=== PATIENT | male | born 1945 | race Caucasian/White ===

== ENCOUNTER 2019-11-24 05:47 | Day surgery (SDC) | payer OTHER, BC ==
[2019-11-19 10:09] VITALS: BMI 26.1
[2019-11-24] MEDS ORDERED: ERYTHROMYCIN 0.5% OPHTHALMIC OINTMENT 3.5 GM TUBE ONE (07:12)
[2019-11-24] MEDS ORDERED: TETRACAINE 0.5% OPHTH SOLN 2 ML BOTTLE ONE (07:12)
[2019-11-24] MEDS ORDERED: LIDOCAINE 1%/EPI 1:100000 (20 ML MULTI DOSE VIAL) ONE (07:13)
[2019-11-24] MEDS ORDERED: POVIDONE-IODINE 5% OPHTHALMIC PREP 30 ML SOLUTION ONE (07:13)
[2019-11-24] MEDS ORDERED: MIDAZOLAM HCL 2 MG/2 ML SINGLE DOSE VIAL ONE (07:28)
[2019-11-24] MEDS ORDERED: PROPOFOL 20 ML ONE ×2 (07:28)
[2019-11-24] MEDS ORDERED: ceFAZolin SODIUM 1 GM VIAL ONE (08:00)
[2019-11-24] MEDS ORDERED: DEXAMETHASONE SOD PHOSPHATE 4 MG/1 ML VIAL ONE (08:20)
[2019-11-24] MEDS ORDERED: ONDANSETRON 4 MG/2 ML VIAL ONE ×2 (08:20→09:30)
[2019-11-24] MEDS ORDERED: oxyCODONE HCL 5 MG TABLET PO PRN (09:56)
[2019-11-24] MEDS ORDERED: ONDANSETRON 4 MG/2 ML VIAL IVPUSH PRN (09:56)
[2019-11-24] MEDS ORDERED: ACETAMINOPHEN 500 MG TABLET (FP) PO PRN (09:57)
[2019-11-24] MEDS ORDERED: LACTATED RINGERS SOLUTION 1,000 ML IV SCH (10:00)
[2019-11-24] MEDS ORDERED: ACETAMINOPHEN 325 MG TABLET (FP) ONE (10:22)
[2019-11-24 11:04] VITALS: TEMP 97.9
[2019-11-24 11:30] VITALS: BP 133/77; PULSE 58
--- NOTE | 2019-11-24 14:52 | OP ---
DATE OF OPERATION: 11/24/2019 PREOPERATIVE DIAGNOSIS: Dermatochalasis with visual obstruction, bilateral upper lids, and christianity brow ptosis contributing to it. POSTOPERATIVE DIAGNOSIS: Dermatochalasis with visual obstruction, bilateral upper lids, and christianity brow ptosis contributing to it. PROCEDURE: Functional blepharoplasty, bilateral upper lids. SURGEON: Salvador Miller MD ANESTHESIA: LMA. COMPLICATIONS: None. ESTIMATED BLOOD LOSS: 3-5 mL. OPERATIVE REPORT: Patient was brought to the operating room and placed on the operating room table. Vital signs were monitored by Anesthesia. Timeout was performed. Tetracaine was placed in both eyes. The lid creases were symmetrically marked, approximately 9 mm from the central lid margin and the patient's tetlin lid crease extending nasally and temporally. Again, checked with calipers for symmetry the amount of skin that could be safely removed, in order to restore his functional vision without lash eversion was determined by pinching the skin in both eyelids and the ellipses were marked, leaving at least 12 mm of skin below the inferior brow hairs. Intravenous sedation was administered, after the timeout, and a subcutaneous injection of 2% Xylocaine and 1:100,000 epinephrine was injected for 2-3 mL in both upper lids and along the lateral superior orbital rim, in preparation for a temporal brassiere suture. Patient was prepped and draped in the usual sterile fashion, exposing both eyes. The lid creases and ellipses were incised with a 15 blade and the skin was removed. Hemostasis was achieved with a Chambers needle. orbicularis was then widely opened with prolapse of preaponeurotic fat essentially in both upper lids. The nasal fat pads were identified, sculpted, and then nasal fat pedicles were developed in order to transpose the fat. The central fat pocket was gently sculpted and removed, but minimally so for debulking of the eyelid, where preoperative photographs demonstrated the greatest overhang of tissue, and the base of the fat was cauterized. The nasal fat pedicles were then transposed into the central eyelid and secured with a 6-0 Vicryl suture. Temporally, the arcus marginalis was exposed and the temporal orbicularis was sutured to the arcus marginalis with two interrupted 6-0 Vicryl sutures as brassiere sutures to elevate the temporal brow, fat pad, and accentuate the crease. The antibiotic irrigation was used. Good hemostasis was in evidence. The wounds were closed with interrupted and running 6-0 nylon suture Plastic technique. A small cystic lesion at the nasal end of the excision in the right upper lid was excised, and submitted for pathologic study, and this was closed with a single 6-0 plain suture as it was incorporated into the lid crease. Erythromycin ointment was placed in the eye and on the sutures of both upper lids. The patient was taken to recovery room, after being awakened from anesthesia without complication. SALVADOR MILLER M.D. [id number]
--- NOTE | 2019-11-25 18:29 | PATH ---
Surgical Pathology Report Patient Name: SALVADOR MCDONNELL Med. Rec. #: [id number] /Age/Gender: 1945 (Age: 74) / M Account: [id number] Location: [facility] Taken: 11/24/2019 Received: 11/24/2019 Reported: 11/25/2019 Physicians: Salvador Cardoza Specimen(s) Received A: SKIN RIGHT UPPER EYELID B: SKIN LEFT UPPER EYELID C: NASAL CYST, RIGHT UPPER EYELID Clinical History Dermatochalasis, bilateral upper eyes Final Diagnosis A. SKIN, UPPER EYELID, RIGHT, FUNCTIONAL BLEPHAROPLASTY: SKIN WITH SOLAR ELASTOSIS AND UNDERLYING SUBCUTANEOUS TISSUE. B. SKIN, UPPER EYELID, LEFT, FUNCTIONAL BLEPHAROPLASTY: SKIN WITH SOLAR ELASTOSIS, UNDERLYING SUBCUTANEOUS TISSUE, AND SCANT SKELETAL MUSCLE. C. NASAL CYST, UPPER EYELID, RIGHT, EXCISION: EPIDERMAL INCLUSION CYST. Electronically Signed Eloina Laboy M.D. Gross Description A. Received in formalin labeled "skin right upper eyelid" is an ellipse of [place] valle skin measuring 5.5 x 0.5 cm excised to a depth of 0.3 cm. No surface lesions are identified. Entire specimen is submitted in one cassette. B. Received in formalin labeled "skin left upper eyelid" is an ellipse of [place] skin measuring 4 x 0.5 cm excised to a depth of 0.2 cm. No surface lesions are identified. Entire specimen is submitted in one cassette. C. Received in formalin labeled "nasal cyst right upper eyelid" are irregular fragments of white-del valle soft tissue measuring 0.1 and 0.2 cm. The specimen is filtered and entirely submitted one cassette. MLSZ/11/24/2019 sanml/11/24/2019
== END 2019-11-24 11:30 | disposition home or self-care (01) ==
LOC: FASU 05:47
PROVIDERS: ATTEND Ophthalmology
PROC: 08QPXZZ Repair Left Upper Eyelid, External Approach (ICD-10-PCS; 2019-11-24)
PROC: 08QNXZZ Repair Right Upper Eyelid, External Approach (ICD-10-PCS; principal; 2019-11-24 08:23)
DX: H02.831 Dermatochalasis of right upper eyelid (principal); H02.834 Dermatochalasis of left upper eyelid; H57.813 Brow ptosis, bilateral
CPT/HCPCS: 88304-TC; 94760

== ENCOUNTER 2020-08-16 06:10 | Day surgery (SDC) | payer OTHER, BC ==
--- OUTSIDE RECORDS SUMMARY | 2020-08-10 08:33 | XMS ---
:1945 [facility] Support Name Relationship Address Phone RE Unavailable Unavailable Unavailable HIEN MCDONNELL [address] [phone] [place] [address] Re-disclosure Warning The records that you are about to access may contain information from federally- assisted alcohol or drug abuse programs. If such information is present, then the following federally mandated warning applies: This information has been disclosed to you from records protected by federal confidentiality rules (42 CFR part 2). The federal rules prohibit you from making any further disclosure of this information unless further disclosure is expressly permitted by the written consent of the person to whom it pertains or as otherwise permitted by 42 CFR part 2. A general authorization for the release of medical or other information is NOT sufficient for this purpose. The Federal rules restrict any use of the information to criminally investigate or prosecute any alcohol or drug abuse patient.The records that you are about to access may contain highly sensitive health information, the redisclosure of which is protected by Article 27-F of the [facility] Public Health law. If you continue you may haveaccess to information: Regarding HIV / AIDS; Provided by facilities licensed or operated by the [facility] Office of Mental Health; or Provided by the [facility] Office for People With Developmental Disabilities. If such information is present, then the following [facility] mandated warning applies: This information has been disclosed to you from confidential records which are protected by state law. State law prohibits you from making any further disclosure of this information without the specific written consent of the person to whom it pertains, or as otherwise permitted by law. Any unauthorized further disclosure in violation of state law may result in a fine or long-term sentence or both. A general authorization for the release of medical or other information is NOT sufficient authorization for further disclosure. Insurance Providers Payer name Policy type Policy ID Covered Covered constitution party's Policy P victor manuel / Coverage constitution party ID relationship to Garcia Inf ormation type garcia GHI CBP OUTPT [id number] SP [id number] BC PPO [id number] SP [id number] MEDICARE [id number] SP [id number] Blue Cross PPO Blue Cross [id number] 1 N [id number] Medicare Part Medicare [id number] 1 [id number] B Outpatient Results ID Date Data Source [id number] 08/05/2020 02:19:00 PM EDT [facility] Name Value Range Interpretation Description Data Sup porting Code Source(s) Document(s ) SARS [facility] Coronavirus 2 RNA Presence Respiratory Specimen CLAUDIA Probe Detection This lab was ordered by [facility] and rep orted by [facility]. ID Date Data Source [id number] 06/01/2020 09:13:00 AM EDT [facility] Name Value Range Interpretation Description Data Sup porting Code Source(s) Document(s ) SARS [facility] Coronavirus 2 RNA Presence Respiratory Specimen CLAUDIA Probe Detection This lab was ordered by [facility] and rep orted by [facility]. ID Date Data Source [id number] 02/15/2020 12:00:00 AM EDT [facility] Name Value Range Interpretation Code Description Data Vika rce(s) Supporting Document(s ) 2019-nCoV [facility] RNA XXX CLAUDIA+probe- Imp This lab was ordered by [facility] and reported by [email or web address] Procedure
[2020-08-10 17:50] VITALS: BMI 26.1
--- OUTSIDE RECORDS SUMMARY | 2020-08-16 06:14 | XMS ---
:1945 Author [facility] Support Name Relationship Address Phone RE, RETIRED Unavailable Unavailable Unavailable RE Unavailable Unavailable Unavailable HIEN MCDONNELL [address] [place] [phone] Re-disclosure Warning The records that you are [...] is protected by Article 27-F of the [facility] Public Health law. If you continue you may haveaccess to information: Regarding HIV / AIDS; Provided by facilities licensed or operated by the [facility] Office of Mental Health; or Provided by the [facility] Office for People With Developmental Disabilities. If such information is present, then the following [facility] mandated warning applies: This information has been [...] law may result in a fine or detention sentence or both. A general authorization for the release of medical or other information is NOT sufficient authorization for further disclosure. Insurance Providers Payer name Policy type Policy ID Covered Covered alliance party's Policy P victor manuel / Coverage alliance party ID relationship to Garcia Inf ormation type garcia BC PPO [id number] SP [id number] MEDICARE [id number] SP [id number] GHI CBP OUTPT [id number] SP [id number] BC PPO [id number] SP [id number] GHI CBP OUTPT [id number] SP [id number] BC PPO [id number] SP [id number] Blue Cross PPO Blue Cross [id number] 1 N [id number] Medicare Part Medicare [id number] 1 [id number] B Outpatient Results ID Date Data Source [id number] 08/05/2020 02:19:00 PM EDT [facility] Name Value Range Interpretation Description Data Sup porting Code Source(s) Document(s ) SARS [facility] Coronavirus 2 RNA Presence Respiratory Specimen CLAUDIA Probe Detection This lab was ordered by [facility] and rep orted by [facility]. ID Date Data Source [id number] 06/01/2020 09:13:00 AM EDT [facility] Name Value Range Interpretation Description Data Sup porting Code Source(s) Document(s ) SARS [facility] Coronavirus 2 RNA Presence Respiratory Specimen CLAUDIA Probe Detection This lab was ordered by [place] and rep orted by [facility]. ID Date Data Source [id number] 02/15/2020 12:00:00 AM EDT [facility] Name Value Range Interpretation Code Description Data Vika rce(s) Supporting Document(s ) 2019-nCoV [facility] RNA XXX CLAUDIA+probe- Imp This lab was ordered by [facility] and reported by [employer] Procedure
[2020-08-16] MEDS ORDERED: POVIDONE-IODINE 5% OPHTHALMIC PREP 30 ML SOLUTION ONE ×2 (07:08→08:11)
[2020-08-16] MEDS ORDERED: ERYTHROMYCIN 0.5% OPHTHALMIC OINTMENT 3.5 GM TUBE ONE (07:08)
[2020-08-16] MEDS ORDERED: TETRACAINE 0.5% OPHTH SOLN 2 ML BOTTLE ONE (07:08)
[2020-08-16] MEDS ORDERED: LIDOCAINE 1%/EPI 1:100000 (20 ML MULTI DOSE VIAL) ONE (07:09)
[2020-08-16] MEDS ORDERED: BUPIVACAINE HCL/PF 0.5% (5MG/ML) 10 ML VIAL ONE (07:09)
[2020-08-16] MEDS ORDERED: MIDAZOLAM HCL 2 MG/2 ML SINGLE DOSE VIAL ONE ×2 (07:32)
[2020-08-16] MEDS ORDERED: SUCCINYLCHOLINE CHLORIDE 200 MG/10 ML SYRINGE ONE (07:32)
[2020-08-16] MEDS ORDERED: PROPOFOL 20 ML ONE ×3 (07:32)
[2020-08-16] MEDS ORDERED: EPHEDRINE SULFATE/0.9% NACL/PF 50 MG/10 ML SYRINGE NR ONE (08:34)
--- NOTE | 2020-08-16 09:52 | OP ---
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 PROCEDURE: Lateral tarsal strip right lower lid, lateral tarsal strip left lower lid, conjunctivoplasty with punctal inversion right, conjunctivoplasty with punctal inversion left and mild excision of conjunctivochalasis both eyes. ANESTHESIA: LMA. COMPLICATIONS: None. ESTIMATED BLOOD LOSS: Two to 3 mL OPERATIVE REPORT: Patient brought to the operating room, placed on the operating room table. Vital signs monitored by Anesthesia. Tetracaine was placed in both eyes. Lateral canthal lines were marked for both lateral canthi. Patient was given intravenous sedation and then a 50:50 mixture of 2% Xylocaine with 1:100,000 epinephrine and 0.5% Marcaine was injected at the lateral canthus down to the periosteum lateral corner of the upper and lower lid and subconjunctivally in both inferior fornices. He was prepped and draped in the usual sterile fashion. Incision was made in the right lower canthus, but patient was moving too much to continue. Therefore, he was converted to LMA anesthesia and we reprepped and draped, and the following procedure was performed bilaterally: A lateral canthal incision was made with a 15-blade down to subcutaneous tissues. This was carried down to the orbital rim with a [place] needle. The inferior elebrt of the lateral canthal tendon was from the orbital rim with the [place] needle. Lids were overlapped at the orbital rim, marked with sterile marking pen, divided into an anterior and posterior level. The anterior level was excised. The posterior level was denuded of epithelium posteriorly and superiorly creating lateral tarsal strips. These were reattached to the orbital rim slightly higher than the previous attachment at junction with the superior elbert of the lateral canthal tendon with a double-arm 5-0 Prolene suture reinforced with two 6-0 Vicryl lasso sutures. These were not tied at this point. The lid was everted. A small amount of conjunctivochalasis was either cauterized or excised and a subpunctal with conjunctival retractors was excised exposing the post orbicularis surface. The puncta were then dilated inferiorly and a posterior Good punctoplasty was performed bilaterally to open up the punctal stenosis. Then the excision of the conjunctiva just below the punctum was then closed with a double-arm 5-0 chromic suture, grabbing inferior, retracting superior tarsal and then exiting through full-thickness nasal ala through the conjunctiva and skin inverting the punctum. The lateral canthal angles were reformed with 5-0 chromic buried through the yuen line of the upper lid and lower lid with a buried suture. Prolenes were then tied, reattaching the tarsal strips to the orbital rim. The excess tarsal strip was overlapped over the Prolene tie with a 5-0 chromic. Antibiotic irrigation was used throughout the case. The muscle layer was closed with 5-0 chromic and then the skin was closed with running 6-0 plain suture. Erythromycin ointment was placed in the eye and on the sutures of the lateral canthus in both. At the end of the operation the patient was awakened from anesthesia and taken to the recovery room in stable condition. SALVADOR MILLER M.D. [id number]
[2020-08-16 11:15] VITALS: BP 120/82; PULSE 72; TEMP 98
== END 2020-08-16 11:45 | disposition home or self-care (01) ==
LOC: FASU 06:10
PROVIDERS: ATTEND Ophthalmology
PROC: 08SQ0ZZ Reposition Right Lower Eyelid, Open Approach (ICD-10-PCS; 2020-08-16)
PROC: 08QTXZZ Repair Left Conjunctiva, External Approach (ICD-10-PCS; 2020-08-16)
PROC: 08QSXZZ Repair Right Conjunctiva, External Approach (ICD-10-PCS; 2020-08-16)
PROC: 08SR0ZZ Reposition Left Lower Eyelid, Open Approach (ICD-10-PCS; principal; 2020-08-16 07:30)
DX: H02.112 Cicatricial ectropion of right lower eyelid (principal); H02.115 Cicatricial ectropion of left lower eyelid; H04.203 Unspecified epiphora, bilateral; H04.523 Eversion of bilateral lacrimal punctum; H04.563 Stenosis of bilateral lacrimal punctum
CPT/HCPCS: 94760